=== PATIENT | female | born 1980 | race African-American/Black ===

== ENCOUNTER 2025-04-10 16:21 | Emergency (ER) | payer MEDICAID ==
[~2025-04-10] VITALS: Ht 162.6 cm; Wt 70.0 kg
[2025-04-10 16:34] VITALS: O2SAT 98
[2025-04-10 17:13] LABS: BASOPHILS % 0.3 % (0.0-2.0); EOSINOPHILS % 1.3 % (0.0-5.0); HEMATOCRIT. 42.2 % (36.0-48.0); HEMOGLOBIN. 14.2 g/dL (12.0-16.0); LYMPHOCYTES % 38.5 % (20.0-50.0); MEAN PLATELET VOLUME 8.3 fl (7.4-10.4); MONOCYTES % 8.0 % (2.0-8.0); NEUTROPHILS % 51.9 % (40.0-76.0); PLATELET 264 x1000/uL (130-400); RED BLOOD CELL COUNT 4.66 mill/uL (4.2-5.4); RED CELL DISTRIBUTION WIDTH 14.1 % (11.6-14.6)
[2025-04-10 17:24] LABS: INR 1.1
[2025-04-10 17:27] LABS: CREATININE 0.9 mg/dL (0.6-1.0); TROPONIN I HIGH SENSITIVITY 4 ng/L (3.0-34); UREA NITROGEN BLOOD 7 mg/dL (9-23)
[2025-04-10 17:29] LABS: ASPARTATE AMINOTRANSFERASE 26 IU/L (<34); BILIRUBIN DIRECT 0.1 mg/dL (<=3.0); BILIRUBIN TOTAL 0.3 mg/dL (0.1-1.0); PROTEIN TOTAL 7.3 g/dL (6.0-8.3)
[2025-04-10 17:32] LABS: HCG SCREEN NEGATIVE
[2025-04-10] MEDS: CYCLOBENZAPRINE 10MG TABLET PO ONE (17:45)
[2025-04-10] MEDS: IBUPROFEN 600MG TABLET PO ONE (17:45)
[2025-04-10 19:28] LABS: TROPONIN I HIGH SENSITIVITY < 4 ng/L (3.0-34)
[2025-04-10] MEDS ORDERED: CYCL10TA21 MT (19:30)
[2025-04-10] MEDS ORDERED: IBUP-1455 MT (19:30)
[2025-04-10 19:36] VITALS: BP 126/84; PULSE 74; RESP 16; TEMP 37.1; O2SAT 99
== END 2025-04-10 19:38 | disposition home or self-care (01) ==
LOC: ER 16:21
DX: R09.1 Pleurisy (principal); R07.89 Other chest pain; R06.02 Shortness of breath; Z79.899 Other long term (current) drug therapy
CPT/HCPCS: 36415; 71045; 80048; 80076; 83735; 83880; 84484; 84703; 85025; 85379; 93005; 99285

== ENCOUNTER 2025-04-29 19:34 | Emergency (ER) | payer MEDICAID ==
[~2025-04-29] VITALS: Ht 162.6 cm; Wt 66.0 kg
[~2025-04-29 19:34] MED LIST: CYCL10TA21 MT; IBUP-1455 MT
[2025-04-29 19:49] VITALS: O2SAT 100
[2025-04-29 19:58] VITALS: TEMP 37; O2SAT 100
[2025-04-29 21:02] VITALS: BP 141/97; PULSE 76; RESP 16
[2025-04-29] MEDS: KETOROLAC 15MG/ML VIAL IM ONE (21:02)
[2025-04-29] MEDS ORDERED: NAPR-1176 MT (21:13)
[2025-04-29] MEDS ORDERED: CYCL5TAB3 MT (21:13)
== END 2025-04-29 21:38 | disposition home or self-care (01) ==
LOC: ER 19:34
DX: B34.9 Viral infection, unspecified (principal)
CPT/HCPCS: 99283; 81025; 96372; J1885